=== PATIENT | female | born 1995 | race Caucasian/White ===

== ENCOUNTER 2018-12-06 19:04 | Emergency (ER) | payer OTHER ==
--- NOTE | 2018-12-06 20:07 | ED Physician Documentation ---
History of Present Illness - Stated complaint Stated Complaint: FEMALE - Chief complaint Chief Complaint: Abd Pain - History obtained from History obtained from: Patient - History of Present Illness Timing: Today - Additonal information Additional information: Patient is a 23-year-old female presenting with bilateral groin pain that began just prior to arrival. Patient reports significant menstrual cramps with light menstrual bleeding. Patient denies other vaginal pain or discharge. Patient's last menstrual period was approximately 70 days prior to onset of this period and states that she has had multiple negative tests. No fever, nausea, vomiting, urinary changes, or stool changes except for at this time she feels as though she cannot urinate or have a bowel movement. Patient took ibuprofen prior to arrival with significant improvement of discomfort. No other improving or worsening factors noted. Review of Systems Constitutional: denies: Fever GI: reports: Abdominal Pain. denies: Nausea, Vomiting, Constipation, Diarrhea : reports: Vaginal bleeding, Irregular menses. denies: Dysuria PD PAST MEDICAL HISTORY - Past Medical History Past Medical History: Yes - Past Surgical History Past Surgical History: Yes General: Appendectomy - Allergies Allergies/Adverse Reactions: Allergies Allergy/AdvReac Type Severity Reaction Status Date / Time No Known Drug Allergies Allergy Verified 12/06/18 19:14 - Social History Does the pt smoke?: No Smoking Status: Never smoker Does the pt drink ETOH?: Yes ETOH Use: Wine, Liquor Does the pt have substance abuse?: No Substance Use and Type: Marijuana - Immunizations Immunizations are current?: Yes - POLST Patient has POLST: No PD ED PE NORMAL - Vitals Vital signs reviewed: Yes - General General: Alert and oriented X 3, No acute distress, Well developed/nourished - HEENT HEENT: Atraumatic, Moist mucous membranes - Neck Neck: Supple, no meningeal sign - Cardiac Cardiac: RRR, No murmur - Respiratory Respiratory: No respiratory distress, Clear bilaterally - Abdomen Abdomen: Soft, Non tender, Non distended - Derm Derm: Normal color, Warm and dry, No rash - Extremities Extremities: No deformity, No tenderness to palpate, No edema - Neuro Neuro: Alert and oriented X 3, No motor deficit, No sensory deficit - Psych Psych: Normal mood, Normal affect Results - Vitals Vitals: Vital Signs - 24 hr 12/06/18 12/06/18 19:09 22:14 Temperature 36.4 C L 36.1 C L Heart Rate 91 72 Respiratory 18 18 Rate Blood Pressure 120/79 122/79 O2 Saturation 98 100 Oxygen O2 Source Room air - Labs Labs: Laboratory Tests 12/06/18 12/06/18 12/06/18 20:45 20:45 20:45 WBC 12.0 H RBC 4.14 L Hgb 12.2 Hct 36.7 L MCV 88.6 MCH 29.5 MCHC 33.2 RDW 13.2 Plt Count 323 MPV 9.6 Neut # (Auto) 9.0 H Lymph # (Auto) 2.3 [place] # (Auto) 0.5 Eos # (Auto) 0.1 Baso # (Auto) 0.1 Absolute Nucleated RBC 0.00 Nucleated RBC % 0.0 Sodium 139 Potassium 4.1 Chloride 105 Carbon Dioxide 22 Anion Gap 12.0 BUN 12 Creatinine 0.7 Estimated GFR (MDRD) 103 Glucose 115 H Calcium 10.1 Total Bilirubin 0.4 AST 19 ALT 16 Alkaline Phosphatase 73 Total Protein 8.3 H Albumin 4.6 Globulin 3.7 Albumin/Globulin Ratio 1.2 Lipase 34 Serum HCG, Qual NEGATIVE Urine Color Urine Clarity Urine pH Ur Specific [place] Urine Protein Urine Glucose (UA) Urine Ketones Urine Occult Blood Urine Nitrite Urine Bilirubin Urine Urobilinogen Ur Leukocyte Esterase Urine RBC Urine WBC Ur Squamous Epith Cells Urine Bacteria Ur Microscopic Review Urine Culture Comments Urine HCG, Qual 12/06/18 12/06/18 21:50 21:50 WBC RBC Hgb Hct MCV MCH MCHC RDW Plt Count MPV Neut # (Auto) Lymph # (Auto) [place] # (Auto) Eos # (Auto) Baso # (Auto) Absolute Nucleated RBC Nucleated RBC % Sodium Potassium Chloride Carbon Dioxide Anion Gap BUN Creatinine Estimated GFR (MDRD) Glucose Calcium Total Bilirubin AST ALT Alkaline Phosphatase Total Protein Albumin Globulin Albumin/Globulin Ratio Lipase Serum HCG, Qual Urine Color LT. YELLOW Urine Clarity HAZY Urine pH 6.5 Ur Specific [place] 1.015 1.015 Urine Protein NEGATIVE Urine Glucose (UA) NEGATIVE Urine Ketones NEGATIVE Urine Occult Blood SMALL H Urine Nitrite NEGATIVE Urine Bilirubin NEGATIVE Urine Urobilinogen 0.2 (NORMAL) Ur Leukocyte Esterase NEGATIVE Urine RBC 0-5 Urine WBC 0-3 Ur Squamous Epith Cells FEW Squamous Urine Bacteria Rare Ur Microscopic Review INDICATED Urine Culture Comments NOT INDICATED Urine HCG, Qual NEGATIVE PD MEDICAL DECISION MAKING - ED course Complexity details: reviewed results, re-evaluated patient, considered differential, d/w patient, d/w family ED course: Patient presenting with lower abdominal back pain consistent with menstrual cramping, however, she reports this has significant and much more painful than her usual cramps. 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 Patient does not believe she is as she has had multiple negative tests at home and at her physician's office. Patient denies other associated symptoms that would raise high suspicion for other intra-abdominal pathology including pancreatitis, gallbladder disease, diverticulitis, AAA, bowel obstruction, renal disease or UTI. Do have concern for possible ovarian cyst, but have lesser suspicion for PID, ovarian torsion, STDs, abscess, but considered. Patient relatively comfortable at this time as she took ibuprofen prior to arrival and did not require medications, but started on IV fluids. Screening lab work revealed mild leukocytosis but otherwise relatively unremarkable. Urinalysis also relatively unremarkable except for presence of blood which is likely from vaginal bleeding. Patient able to urinate on her own without complication in the ED. CT abdomen/pelvis obtainedAnd results pending. Patient signed out to oncoming ED physician and disposition will be dependent on imaging results. Disposition is unknown at this time and for disposition and further details please refer to oncoming ED physicians documentation. Departure - Departure Clinical Impression: Abdominal pain Qualifiers: Abdominal location: lower abdomen, unspecified Qualified Code(s): R10.30 - Lower abdominal pain, unspecified
[2018-12-06] MEDS ORDERED: SODIUM CHLORIDE 0.9% 1,000 ML IV ONE (20:19)
[2018-12-06 20:58] LABS: BASOPHILS # (AUTO) 0.1 10^3/uL (0.0-0.1); BASOPHILS % (AUTO) 0.5 %; EOSINOPHILS # (AUTO) 0.1 10^3/uL (0.0-0.7); EOSINOPHILS % (AUTO) 0.7 %; HGB - HEMOGLOBIN 12.2 g/dL (12.0-16.0); LYMPHOCYTES # (AUTO) 2.3 10^3/uL (1.5-3.5); MEAN CORPUSCULAR HEMOGLOBIN 29.5 pg (27.0-31.0); MEAN CORPUSCULAR HGB CONC 33.2 g/dL (32.0-36.0); MEAN CORPUSCULAR VOLUME 88.6 fL (81.0-99.0); MEAN PLATELET VOLUME 9.6 fL (7.9-10.8); MONOCYTES # (AUTO) 0.5 10^3/uL (0.0-1.0); MONOCYTES % (AUTO) 4.5 %; NEUTROPHILS % (AUTO) 74.9 %; PLT - PLATELET COUNT 323 10^3/uL (130-450); RED BLOOD COUNT 4.14 10^6/uL (4.20-5.40); RED CELL DISTRIBUTION WIDTH 13.2 % (12.0-15.0)
[2018-12-06 21:12] LABS: ALBUMIN 4.6 g/dL (3.2-5.5); ALBUMIN/GLOBULIN RATIO 1.2 (1.0-2.2); BILIRUBIN,TOTAL 0.4 mg/dL (0.2-1.0); CALCIUM 10.1 mg/dL (8.5-10.3); CREATININE 0.7 mg/dL (0.4-1.0); TOTAL PROTEIN 8.3 g/dL (6.7-8.2)
[2018-12-06 21:28] LABS: HCG,QUALITATIVE BLOOD NEGATIVE
[2018-12-06 21:57] LABS: BILIRUBIN,URINE NEGATIVE (NEGATIVE); GLUCOSE, URINE (UA) NEGATIVE (NEGATIVE); KETONES,URINE (UA) NEGATIVE (NEGATIVE); LEUKOCYTE ESTERASE, URINE NEGATIVE (NEGATIVE); NITRITE,URINE NEGATIVE (NEGATIVE); OCCULT BLOOD,URINE SMALL (NEGATIVE); PH,URINE 6.5 PH (5.0-7.5); PROTEIN,URINE NEGATIVE (NEGATIVE); UROBILINOGEN,URINE 0.2 (NORMAL) E.U./dL (NORMAL)
[2018-12-06 22:00] LABS: CLARITY,URINE HAZY (CLEAR)
[2018-12-06 22:01] LABS: HCG UR QUAL NEGATIVE
[2018-12-06] MEDS ORDERED: IOVERSOL 320 100 ML VIAL IVP ONE ×2 (22:23→22:44)
[2018-12-06 22:27] LABS: BACTERIA,URINE Rare /HPF (None Seen); RBC,URINE 0-5 /HPF (0-5); SQUAMOUS EPITHELIAL CELL,UR FEW Squamous (<= Few)
--- NOTE | 2018-12-06 23:06 | CT Report ---
Reason: diffuse lower abdominal pain with menstrual bleedi Procedure Date: 12/06/2018 Accession Number: [id number] / [id number] Procedure: CT - Abdomen/Pelvis W CPT Code: FULL RESULT: EXAM: CT ABDOMEN AND PELVIS EXAM DATE: 12/06/2018 10:43 PM. CLINICAL HISTORY: Diffuse lower abdominal pain with menstrual bleeding. COMPARISONS: None. TECHNIQUE: Routine helical CT imaging was performed through the abdomen and pelvis. IV contrast: 100 cc of Optiray 320. Enteric contrast: No. Reconstructions: Coronal and sagittal. In accordance with CT protocol optimization, one or more of the following dose reduction techniques were utilized for this exam: automated exposure control, adjustment of mA and/or KV based on patient size, or use of iterative reconstructive technique. FINDINGS: Lung Bases: Unremarkable. Liver: Normal. No masses. Gallbladder/Bile Ducts: Large gallstone. No dilated ducts. Spleen: Normal. Pancreas: Normal. Adrenal Glands: Normal. Kidneys: Normal. No masses or hydronephrosis. Peritoneal Cavity/Bowel: Normal. No free fluid, free air or adenopathy. No masses or acute inflammatory process. Appendectomy clips noted. Pelvic Organs: The reproductive organs and bladder are unremarkable. Vasculature: No aneurysms or other significant abnormality. Bones: No significant abnormality. Other: None. IMPRESSION: Large gallstone noted, otherwise unremarkable abdomen and pelvis CT. RADIA
--- NOTE | 2018-12-06 23:51 | ED Physician Documentation ---
History of Present Illness - Stated complaint Stated Complaint: FEMALE - Chief complaint Chief Complaint: Abd Pain - Additonal information Additional information: History and physical as dictated and charted by Dr. Hernandez. PAST MEDICAL HISTORY - Past Medical History Past Medical History: Yes - Past Surgical History Past Surgical History: Yes General: Appendectomy - Present Medications Home Medications: Ambulatory Orders Medication Instructions Recorded Confirmed Ibuprofen [Motrin] 800 mg PO Q8H PRN #30 tablet 12/06/18 - Allergies Allergies/Adverse Reactions: Allergies Allergy/AdvReac Type Severity Reaction Status Date / Time No Known Drug Allergies Allergy Verified 12/06/18 19:14 - Social History Does the pt smoke?: No Smoking Status: Never smoker Does the pt drink ETOH?: Yes ETOH Use: Wine, Liquor Does the pt have substance abuse?: No Substance Use and Type: Marijuana - Immunizations Immunizations are current?: Yes - POLST Patient has POLST: No Results - Vitals Vitals: Vital Signs - 24 hr 12/06/18 12/06/18 19:09 22:14 Temperature 36.4 C L 36.1 C L Heart Rate 91 72 Respiratory 18 18 Rate Blood Pressure 120/79 122/79 O2 Saturation 98 100 Oxygen O2 Source Room air - Labs Labs: Laboratory Tests 12/06/18 12/06/18 12/06/18 20:45 20:45 20:45 WBC 12.0 H RBC 4.14 L Hgb 12.2 Hct 36.7 L MCV 88.6 MCH 29.5 MCHC 33.2 RDW 13.2 Plt Count 323 MPV 9.6 Neut # (Auto) 9.0 H Lymph # (Auto) 2.3 [place] # (Auto) 0.5 Eos # (Auto) 0.1 Baso # (Auto) 0.1 Absolute Nucleated RBC 0.00 Nucleated RBC % 0.0 Sodium 139 Potassium 4.1 Chloride 105 Carbon Dioxide 22 Anion Gap 12.0 BUN 12 Creatinine 0.7 Estimated GFR (MDRD) 103 Glucose 115 H Calcium 10.1 Total Bilirubin 0.4 AST 19 ALT 16 Alkaline Phosphatase 73 Total Protein 8.3 H Albumin 4.6 Globulin 3.7 Albumin/Globulin Ratio 1.2 Lipase 34 Serum HCG, Qual NEGATIVE Urine Color Urine Clarity Urine pH Ur Specific [place] Urine Protein Urine Glucose (UA) Urine Ketones Urine Occult Blood Urine Nitrite Urine Bilirubin Urine Urobilinogen Ur Leukocyte Esterase Urine RBC Urine WBC Ur Squamous Epith Cells Urine Bacteria Ur Microscopic Review Urine Culture Comments Urine HCG, Qual 12/06/18 12/06/18 21:50 21:50 WBC RBC Hgb Hct MCV MCH MCHC RDW Plt Count MPV Neut # (Auto) Lymph # (Auto) [place] # (Auto) Eos # (Auto) Baso # (Auto) Absolute Nucleated RBC Nucleated RBC % Sodium Potassium Chloride Carbon Dioxide Anion Gap BUN Creatinine Estimated GFR (MDRD) Glucose Calcium Total Bilirubin AST ALT Alkaline Phosphatase Total Protein Albumin Globulin Albumin/Globulin Ratio Lipase Serum HCG, Qual Urine Color LT. YELLOW Urine Clarity HAZY Urine pH 6.5 Ur Specific [place] 1.015 1.015 Urine Protein NEGATIVE Urine Glucose (UA) NEGATIVE Urine Ketones NEGATIVE Urine Occult Blood SMALL H Urine Nitrite NEGATIVE Urine Bilirubin NEGATIVE Urine Urobilinogen 0.2 (NORMAL) Ur Leukocyte Esterase NEGATIVE Urine RBC 0-5 Urine WBC 0-3 Ur Squamous Epith Cells FEW Squamous Urine Bacteria Rare Ur Microscopic Review INDICATED Urine Culture Comments NOT INDICATED Urine HCG, Qual NEGATIVE PD MEDICAL DECISION MAKING - ED course Complexity details: reviewed results, re-evaluated patient, d/w patient ED course: Patient reports that her pain is gone. Her CT showed a large gallstone but no inflammatory changes in the pelvis or definite ovarian pathology. She is encouraged to use ibuprofen for her pain [place] and potentially of the pelvis if her symptoms persist. She states understanding. Departure - Departure Disposition: 01 Home, Self Care Clinical Impression: Abdominal pain Qualifiers: Abdominal location: lower abdomen, unspecified Qualified Code(s): R10.30 - Lower abdominal pain, unspecified Cholelithiasis Qualifiers: Cholelithiasis location: gallbladder Cholecystitis presence: without cholecystitis Biliary obstruction: without biliary obstruction Qualified Code(s): K80.20 - Calculus of gallbladder without cholecystitis without obstruction Condition: Good Instructions: ED Pelvic Pain [facility] Follow-Up: SHAQUILLE Perez [Provider Group] Prescriptions: Ibuprofen [Motrin] 800 mg PO Q8H PRN #30 tablet PRN Reason: PAIN &/OR FEVER Comments: May take Motrin every 8 hours as needed for pain. [place] Return if you have increasing pain, develop a fever, or vomiting and cannot keep anything down or other problems arise.
[2018-12-06 23:55] VITALS: BP 111/76
== END 2018-12-07 00:02 | disposition home or self-care (01) ==
LOC: ED 19:04
DX: R10.30 Lower abdominal pain, unspecified (principal); K80.20 Calculus of gallbladder without cholecystitis without obstruction; N94.6 Dysmenorrhea, unspecified; N92.6 Irregular menstruation, unspecified
CPT/HCPCS: 36415; 74177; 80053; 81001; 81025; 83690; 84703; 85025; 96360; 96361; 99284; Q9967; 81003; 87086

== ENCOUNTER 2020-06-17 12:43 | Outpatient (CLI) | payer OTHER ==
[2020-06-17 13:18] LABS: BASOPHILS % (AUTO) 0.5 %; EOSINOPHILS # (AUTO) 0.1 10^3/uL (0.0-0.7); EOSINOPHILS % (AUTO) 0.9 %; HGB - HEMOGLOBIN 11.8 g/dL (12.0-16.0); LYMPHOCYTES # (AUTO) 2.5 10^3/uL (1.5-3.5); LYMPHOCYTES % (AUTO) 28.9 %; MEAN CORPUSCULAR HEMOGLOBIN 27.8 pg (27.0-31.0); MEAN CORPUSCULAR HGB CONC 32.1 g/dL (32.0-36.0); MEAN CORPUSCULAR VOLUME 86.6 fL (81.0-99.0); MEAN PLATELET VOLUME 9.1 fL (7.9-10.8); MONOCYTES # (AUTO) 0.4 10^3/uL (0.0-1.0); NEUTROPHILS # (AUTO) 5.6 10^3/uL (1.5-6.6); NEUTROPHILS % (AUTO) 64.6 %; PLT - PLATELET COUNT 334 10^3/uL (130-450); RED BLOOD COUNT 4.25 10^6/uL (4.20-5.40); RED CELL DISTRIBUTION WIDTH 16.3 % (12.0-15.0); WHITE BLOOD COUNT 8.7 x10^3/uL (4.8-10.8)
[2020-06-17 13:28] LABS: CALCIUM 9.6 mg/dL (8.5-10.3); CREATININE 0.8 mg/dL (0.4-1.0)
== END 2020-06-17 12:44 | disposition home or self-care (01) ==
LOC: LAB 12:43
PROVIDERS: ATTEND Obstetrics & Gynecology
DX: Z01.812 Encounter for preprocedural laboratory examination (principal); N93.9 Abnormal uterine and vaginal bleeding, unspecified; N94.6 Dysmenorrhea, unspecified
CPT/HCPCS: 36415; 80048; 85025; 86850; 86900; 86901

== ENCOUNTER 2020-06-19 08:52 | Inpatient (IN) | payer OTHER ==
[2020-06-19] MEDS ORDERED: LACTATED RINGERS 1,000 ML IV ONE ×3 (09:09→15:30)
[2020-06-19] MEDS ORDERED: GABAPENTIN 400 MG CAPSULE ONE (09:15)
[2020-06-19] MEDS ORDERED: CELECOXIB 100 MG CAPSULE PO ONE (09:15)
[2020-06-19] MEDS ORDERED: ACETAMINOPHEN 1,000 MG/100 ML 100 ML IV ONE (09:15)
[2020-06-19 09:26] LABS: HCG UR QUAL NEGATIVE
--- NOTE | 2020-06-19 09:49 | ANESTHESIA ---
Pre-Anesthesia VS, & Labs Height: 5 ft Weight (kg): 72.54 kg Body Mass Index: 31.2 BMI Classification: Obese - NPO >8 hours - Is Patient ?: Yes - Lab Results Lab results reviewed: Yes <Lata Dhillon - Last Filed: 06/19/20 09:46> - Diagnosis abnormal uterine bleeding dysmenorrhea (Lata Dhillon) - Procedure Total Laparoscopic Hysterectomy (Lata Dhillon) Vital Signs: Temp Pulse Resp BP Pulse Ox 36.4 C L 81 18 115/82 H 99 06/19/20 09:19 06/19/20 09:19 06/19/20 09:19 06/19/20 09:19 06/19/20 09:19 - Lab Results Current Lab Results: Laboratory Tests 06/19/20 09:42: POC Whole Bld Glucose 88 Home Medications and Allergies <Lata Dhillon Chuck - Last Filed: 06/19/20 09:46> <Yayo Ramachandran - Last Filed: 06/19/20 09:50> Home Medications: Ambulatory Orders Ferrous Sulfate 325 mg PO DAILY 06/15/20 LORazepam [Ativan] 0.5 mg PO Q6H 06/15/20 Sertraline [Zoloft] 50 mg PO DAILY 06/15/20 Ascorbic Acid [Vitamin C] 250 mg PO DAILY 06/19/20 Ferrous Sulfate 325 mg PO DAILY 06/15/20 LORazepam [Ativan] 0.5 mg PO Q6H 06/15/20 Sertraline [Zoloft] 50 mg PO DAILY 06/15/20 Ascorbic Acid [Vitamin C] 250 mg PO DAILY 06/19/20 Allergies/Adverse Reactions: Allergies Allergy/AdvReac Type Severity Reaction Status Date / Time NSAIDS (Non-Steroidal AdvReac Intermediate ulcers Verified 06/19/20 09:29 Anti-Inflamma Anes History & Medical History - Anesthetic History Anesthesia Complications: reports: No previous complications Family history of Anesthesia Complications: Denies Family history of Malignant Hyperthermia: Denies - Medical History Cardiovascular: reports: None Pulmonary: reports: None Gastrointestinal: reports: None Urinary: reports: None Musculoskeletal: reports: None Endocrine/Autoimmune: reports: None Blood Disorders: reports: Anemia Skin: reports: None Smoking Status: Never smoker Psychosocial: reports: Cannabis (vapes at times. Edibles weekly) - Surgical History General: Appendectomy, EGD <Lata Dhillon - Last Filed: 06/19/20 09:46> Exam General: Alert, Oriented x3, Cooperative, No acute distress Dental: WNL Mouth Openin Fingerbreadth Neck Mobility: Normal Mallampati classification: I Respiratory: Lungs clear, Normal breath sounds, No respiratory distress, No accessory muscle use Cardiovascular: Regular rate, Normal S1, Normal S2, No murmurs <Lata Dhillon - Last Filed: 06/19/20 09:46> Plan Anesthesia Type: General, Transverse Abdominis Plane (TAP) Block Regional Block: Per Surgeon's request for Post Op pain control Consent for Procedure(s) Verified and Reviewed: Yes Code Status: Attempt Resuscitation ASA classification: 2-Mild systemic disease Is this case an emergency?: No <Lata Dhillon - Last Filed: 06/19/20 09:46> Anesthesia Type: General, Transverse Abdominis Plane (TAP) Block <Yayo Ramachandran - Last Filed: 06/19/20 09:50>
[2020-06-19] MEDS ORDERED: ONDANSETRON 4 MG/2 ML VIAL IVP PRN (09:51)
[2020-06-19] MEDS ORDERED: NALOXONE 0.4 MG/ML VIAL IVP PRN (09:51)
[2020-06-19] MEDS ORDERED: ePHEDrine 50 MG/ML VIAL IVP PRN (09:51)
[2020-06-19] MEDS ORDERED: METOCLOPRAMIDE 10 MG/2 ML VIAL IVP PRN (09:51)
[2020-06-19] MEDS ORDERED: fentaNYL 100 MCG/2 ML VIAL IVP PRN (09:51)
[2020-06-19] MEDS ORDERED: ATROPINE ABBOJECT 1 MG/10 ML SYRINGE IVP PRN (09:51)
[2020-06-19] MEDS ORDERED: MORPHINE 2 MG/ML CARPUJECT IVP PRN (09:51)
[2020-06-19] MEDS ORDERED: LACTATED RINGERS 1,000 ML IV SCH (10:00)
[2020-06-19] MEDS ORDERED: ceFAZolin 2 GM/50 ML 2 GM/50 ML BAG IV ONE (11:13)
[2020-06-19] MEDS ORDERED: BUPIVACAINE 0.25% PF 10 ML VIAL ONE (11:19)
--- NOTE | 2020-06-19 11:19 | PHARMACY PROGRESS NOTE ---
- Best Possible Medication History Admit Date and Time: 06/19/20 0852 Processed by: Nursing Medication History completed: Yes Patient Interview: Completed Secondary Source(s): Physician records, Pharmacy records, Insurance records As the person ultimately responsible for medication therapy, providers are able to order a medication from an existing home medication list in [facility] via the "Reconcile Routine" prior to Confirmation of that medication by support director. Such practice is discouraged except when the physician, in their clinical judgment, deems that a medical need exists for a medication without regard to previous use.
[2020-06-19] MEDS ORDERED: BUPIVACAINE 0.25% PF 30 ML VIAL SUBQ ONE ×2 (12:26)
[2020-06-19] MEDS ORDERED: MORPHINE 10 MG/ML VIAL IVP PRN (14:57)
--- NOTE | 2020-06-19 15:15 | OPERATIVE REPORT ---
Operative Report - General Admit Date: 06/19/20 Procedure Date: 06/19/20 Planned Procedure: Total Laparoscopic Hysterectomy, Bilateral Salpingectomy, Cystoscopy Pre-Op Diagnosis: Heavy Menstrual Bleeding, Dysmenorrhea Procedure Performed: Total Laparoscopic Hysterectomy, Bilateral Salpingectomy, Cystoscopy, Thermoablation of Endometriosis Lesions Post Op Diagnosis: Heavy Menstrual Bleeding, Dysmenorrhea, Endometriosis - Procedure Note Primary Surgeon: Monica Secondary Surgeon: Mihir Anesthesia Provider: Diamond Anesthesia Technique: General ET tube, Other (TAP Block) Pathology: Uterus, Cervix, Bilateral Fallopian tubes IV Fluids (mL): 2,000 (Ringers Lactate) Estimated Blood Loss (mL): 100 Urine Output (mL): 250 Indications: 25 year old female G0 with long-standing history of dysmenorrhea and heavy menstrual bleeding, not desiring future fertility and declined hormonal contraception to manage dysmenorrhea and heavy menses, desired definitive management with hysterectomy. She was counseled and consented for the procedure. Findings: Exam under anesthesia with normal size/shape/contour mobile uterus. No adnexal masses. Intraoperatively: Uterus sounded to 9cm. Uterus, bilateral fallopian tubes and ovaries appear normal. Anterior cul-de-sac normal. Posterior cul-de-sac and bilateral uterosacral ligaments with numerous black lesions with surrounding thick fibrotic scarring consistent with endometriosis. Normal liver edge and gallbladder. Free memo noted in right abdominal peritoneum from prior surgery. Cystoscopy: Normal bladder without sutures or lacerations, brisk efflux of urine visualized from bilateral ureteral orifices. Complications: None - Other Other Information/Narrative: OPERATIVE PROCEDURE: The patient was taken to the operating room where general endotracheal anesthesia was performed without any complications. An examination under anesthesia was performed notable above findings. The patient was prepared and draped in the usual sterile fashion in the dorsal low lithotomy position. A Blanco catheter was placed in the bladder and an Advincula uterine manipulator with Temitope cervical cup was placed in the uterus to provide uterine manipulation. A vaginal balloon was inflated with saline to aid in pneumoperitoneum. An incision was made in the inferior pole of the umbilicus, and the Veress needle was used to insufflate the abdomen with CO2 gas. Intraabdominal placement confirmed with initial entry pressure of 5mm Hg. A pneumoperitoneum was then created with CO2 gas to maintain maximum pressure of 15mm Hg. The Veress needle was removed and the laparoscopic trocar and scope were placed, using an Sparks bladeless trocar, under direct visualization. Ancillary ports were placed all under direct visualization. The first was a 5 mm port near the left ASIS, the second a 11 mm port near the right ASIS. Survey of the abdomen and pelvis revealed the findings as noted above. The ureters were easily identified transperitoneally bilaterally. The Ligasure device was used to seal and transect the right utero-ovarian and round ligaments followed by opening of the anterior leaf of the broad ligament down to the level of the cervix. The uterine artery was skeletonized, sealed and ligated using the Ligasure device. The same procedure was performed on the left side. A bladder flap was created and the bladder dissected down from the cervix until the endopelvic fascia was identified. The Temitope cup was identified and an incision was made in the cervicovaginal junction on top of the vaginal cuff. This incision was continued circumferentially following the Temitope cup until the cervix was freed from the surrounding vagina. The uterus was then delivered through the vagina. The right fallopian tube was ligated at the mesosalpinx and removed from the abdomen. The left fallopian tube was removed in a similar fashion. The vaginal cuff was closed using 0 V-loc suture endostitch in running fashion. The pelvis was irrigated and the entire pelvis and bilateral pedicles were noted to be hemostatic. The black endometriosis lesions in the posterior cul-de-sac and bilateral uterosacral ligaments were thermoablated with the Ligasure device. The blanco was removed and cystoscopy was performed for inspection of the bladder. A complete survey of the bladder revealed no injury or defects to the bladder or the urethra, and brisk efflux of urine was noted from bilateral uret eral orifices. The cystoscope was removed and the blanco catheter replaced. All instruments were removed from the abdomen. The abdomen was decompressed and all the trocars were removed. The RLQ fascia was closed with 0-vicryl in a using the Nick-Savi device. All skin incisions were closed with 4-0 monocryl in subcuticular fashion and covered with Dermabond. All instruments were removed from the vagina. The patient tolerated the procedure well. All sponge, sharp, and instrument counts were correct x2. The patient was awakened from anesthesia and taken to the recovery room in stable condition with a Blanco catheter in place.
[2020-06-19] MEDS: HYDROmorphone 0.5 MG/0.5 ML SYRINGE IVP PRN ×2 (15:23→15:45)
--- NOTE | 2020-06-19 16:11 | ANESTHESIA POST OP EVALUATION ---
Anesthesia Post Eval - Post Anesthesia Eval Vitals: Last Vital Signs Temp 36.1 C L 06/19/20 15:57 Pulse 86 06/19/20 15:57 Resp 20 06/19/20 15:57 BP 99/62 06/19/20 15:43 Pulse Ox 100 06/19/20 15:57 CV Function Including HR & BP: positive: Stable Pain Control: positive: Satisfactory Nausea & Vomiting: positive: Negative Mental Status: positive: Baseline Respiratory Status: Airway Patent Hydration Status: Satisfactory Anesthesia Complications: positive: None
[2020-06-19] MEDS: LACTATED RINGERS 1,000 ML IV SCH ×2 (16:20→23:33)
[2020-06-19] MEDS: ACETAMINOPHEN 500 MG TABLET PO SCH ×2 (16:21→21:56)
[2020-06-19] MEDS: oxyCODONE 5 MG TABLET PO PRN ×2 (17:45→21:56)
[2020-06-19] MEDS: SERTRALINE 50 MG TABLET PO SCH (18:01)
[2020-06-19] MEDS: DOCUSATE SODIUM 100 MG CAPSULE PO SCH (21:57)
[2020-06-19] MEDS: SIMETHICONE CHEW 80 MG TABLET PO SCH (21:57)
[2020-06-20] MEDS ORDERED: DOXYLAMINE 25 MG TABLET PO ONE ×3 (00:05→21:00)
[2020-06-20] MEDS: ACETAMINOPHEN 500 MG TABLET PO SCH ×2 (03:15→08:45)
[2020-06-20] MEDS: oxyCODONE 5 MG TABLET PO PRN ×2 (05:08→10:01)
[2020-06-20] MEDS: SIMETHICONE CHEW 80 MG TABLET PO SCH (05:08)
[2020-06-20 05:15] LABS: BASOPHILS % (AUTO) 0.2 %; EOSINOPHILS % (AUTO) 0.1 %; HGB - HEMOGLOBIN 9.6 g/dL (12.0-16.0); LYMPHOCYTES # (AUTO) 1.7 10^3/uL (1.5-3.5); LYMPHOCYTES % (AUTO) 13.2 %; MEAN CORPUSCULAR HEMOGLOBIN 27.5 pg (27.0-31.0); MEAN CORPUSCULAR HGB CONC 31.5 g/dL (32.0-36.0); MEAN CORPUSCULAR VOLUME 87.4 fL (81.0-99.0); MEAN PLATELET VOLUME 9.6 fL (7.9-10.8); MONOCYTES # (AUTO) 0.9 10^3/uL (0.0-1.0); NEUTROPHILS % (AUTO) 79.1 %; PLT - PLATELET COUNT 295 10^3/uL (130-450); RED BLOOD COUNT 3.49 10^6/uL (4.20-5.40); RED CELL DISTRIBUTION WIDTH 16.5 % (12.0-15.0); WHITE BLOOD COUNT 12.6 x10^3/uL (4.8-10.8)
[2020-06-20] MEDS: SERTRALINE 50 MG TABLET PO SCH (08:45)
[2020-06-20] MEDS: DOCUSATE SODIUM 100 MG CAPSULE PO SCH (08:45)
--- NOTE | 2020-06-20 09:18 | PROVIDER PROGRESS NOTE ---
Subjective - Prog Note Date Prog Note Date: 06/20/20 Prog Note Time: 09:16 - Subjective Pt reports feeling: Improved Subjective: 25yof now POD#1 s/p uncomplicated TLH/bilateral salpingectomy/cytsoscopy/thermoablation of endometriosis, reports feeling well overnight. Had difficulty falling asleep, was given doxylamine with good effect. She has not yet ambulated. Carrera was discontinued at 0630 and awaiting void. She denies fevers/chills, nausea/vomiting, chest pain/shortness of breath, lightheadedness/dizziness. She reports passage of flatus. Tolerated dinner well last night. No complaints this a.m. Current Medications - Current Medications Current Medications: see medication list Objective - Vital Signs/Intake & Output Reviewed Vital Signs: Yes Vital Signs: Vital Signs x48h Temp Pulse Resp BP BP Pulse Ox 06/20/20 07:55 98.2 F 77 18 96/52 L 98 06/20/20 03:29 103/60 06/20/20 03:00 98.1 F 97 16 93/48 L 98 Intake & Output: Intake & Output 06/17/20 06/18/20 06/19/20 06/20/20 23:59 23:59 23:59 23:59 Intake Total 1740 1070 Output Total 2050 2200 Balance -310 -1130 - Objective General Appearance: positive: No acute distress, Alert Eyes Bilateral: positive: Normal inspection ENT: positive: ENT inspection nml Neck: positive: Nml inspection Respiratory: positive: No respiratory distress Cardiovascular: positive: Regular rate & rhythm Abdomen: positive: Other (Soft, no distention, appropriately tender to palpation) Skin: positive: Other (Abdominal incision sites covered with dermabond, clean and dry) Extremities: positive: Non-tender, No pedal edema Neurologic/Psychiatric: positive: Oriented x3 Comments/Other: - peripad with scant blood - Lab Results Fish Bones: 06/20/20 04:54 Other Labs: Lab Results x24hrs 06/20/20 06/19/20 06/19/20 Range/Units 04:54 09:42 09:08 WBC 12.6 H (4.8-10.8) x10^3/uL RBC 3.49 L (4.20-5.40) 10^6/uL Hgb 9.6 L (12.0-16.0) g/dL Hct 30.5 L (37.0-47.0) % MCV 87.4 (81.0-99.0) fL MCH 27.5 (27.0-31.0) pg MCHC 31.5 L (32.0-36.0) g/dL RDW 16.5 H (12.0-15.0) % Plt Count 295 (130-450) 10^3/uL MPV 9.6 (7.9-10.8) fL Neut # (Auto) 10.0 H (1.5-6.6) 10^3/uL Lymph # (Auto) 1.7 (1.5-3.5) 10^3/uL [place] # (Auto) 0.9 (0.0-1.0) 10^3/uL Eos # (Auto) 0.0 (0.0-0.7) 10^3/uL Baso # (Auto) 0.0 (0.0-0.1) 10^3/uL Absolute Nucleated RBC 0.00 x10^3/uL Nucleated RBC % 0.0 /100WBC POC Whole Bld Glucose 88 (70 - 100) mg/dL Urine HCG, Qual NEGATIVE Assessment/Plan - Problem List (1) Status post hysterectomy Impression: 25yof now POD#1 s/p uncomplicated TLH/bilateral salping ectomy/cystoscopy/thermoablation of endometriosis, doing well. Afebrile, hemodynamically stable. - continue post-surgical care - encourage ambulation - await void - anticipate discharge home today if no complications arise. (2) Heavy menstrual bleeding Impression: s/p hysterectomy, see above Qualifiers: Menorrhagia type: with irregular cycle Qualified Code(s): N92.1 - Excessive and frequent menstruation with irregular cycle (3) Endometriosis determined by laparoscopy Impression: s/p hysterectomy, see above
[2020-06-20] MEDS: LACTATED RINGERS 1,000 ML IV SCH (09:28)
--- NOTE | 2020-06-20 10:08 | DISCHARGE SUMMARY ---
"Discharge Summary Admit Date: 06/19/20 Discharge Date: 06/20/20 Discharging Provider: Monica Code Status: Attempt Resuscitation Condition at Discharge: Good Discharge Disposition: 01 Home, Self Care - DIAGNOSES Admission Diagnoses: Heavy Menstrual Bleeding, Dysmenorrhea Discharge Diagnoses with Status of Each Condition: Heavy menstrual bleeding, dysmenorrhea, and endometriosis, status post hysterectomy - HPI History of Present Illness: 25 year old female G0 with long-standing history of dysmenorrhea and heavy and irregular menses, declining hormonal contraceptive management due to mood side effects, declined future childbearing and desiring definitive management of dysmenorrhea and heavy menstrual bleeding with hysterectomy. - CONSULTS | PROCEDURES Procedures: Total Laparoscopic hysterectomy, bilateral salpingectomy, cystoscopy, thermoablation of endometriosis. - HOSPITAL COURSE Hospital Course: The patient underwent uncomplicated total laparoscopic hysterectomy, bilateral salpingectomy, cystoscopy, and thermoablation of endometriosis lesions, and was admitted for post-surgical care. She is ambulating, tolerating a regular diet, voiding spontaneously, and had good pain control on oral pain medications. She is meeting discharge criteria and was discharged home in stable condition on POD#1. - ALLERGIES Allergies/Adverse Reactions: Allergies Allergy/AdvReac Type Severity Reaction Status Date / Time NSAIDS (Non-Steroidal AdvReac Intermediate ulcers Verified 06/19/20 09:29 Anti-Inflamma - MEDICATIONS Home Medications: Ambulatory Orders Medication Instructions Recorded Confirmed Ibuprofen [Motrin] 800 mg PO Q8H PRN #30 tablet 12/06/18 06/19/20 Ferrous Sulfate 325 mg PO DAILY 06/15/20 06/19/20 LORazepam [Ativan] 0.5 mg PO Q6H 06/15/20 06/19/20 Sertraline [Zoloft] 50 mg PO DAILY 06/15/20 06/19/20 Ascorbic Acid [Vitamin C] 250 mg PO DAILY 06/19/20 06/19/20 Home Medications Other | Comments: Acetaminophen 325mg, take 2 tablets by mouth every 4 hours as needed for pain. DO NOT EXCEED 4000 MG IN A 24 HOUR PERIOD. Ibuprofen 600mg, take 1 tablet by mouth every 6 hours as needed for pain. TAKE WITH FOOD OR MILK. Oxycodone 5mg, take 1 tablet by mouth every 6 hours as needed for pain not controlled by acetaminophen or ibuprofen. - PHYSICAL EXAM AT DISCHARGE General Appearance: positive: No acute distress, Alert Eyes Bilateral: positive: Normal inspection ENT: positive: ENT inspection nml Neck: positive: Nml inspection Respiratory: positive: No respiratory distress Cardiovascular: positive: Regular rate & rhythm Peripheral Pulses: positive: 2+ Abdomen: positive: Other (Soft, nondistended, appropriately tender to palpation) Back: positive: Nml inspection Skin: positive: Other (Abdominal skin incisions clean, dry, and intact, covered with dermabond) Extremities: positive: Non-tender, Nml appearance Neurologic/Psychiatric: positive: Oriented x3 Physical Exam Other/Comments: - no edema, scant bleeding on peripad. - LABS Result Diagrams: 06/20/20 04:54 - FOLLOW UP Follow Up: Follow-up in 2 weeks in [facility] at [facility], . - TIME SPENT Time Spent in Discharge (Minutes): 15"
[2020-06-20 13:56] VITALS: BP 103/63
== END 2020-06-20 12:28 | disposition home or self-care (01) | DRG 743 ==
LOC: MS3 08:52
PROVIDERS: ADMIT Obstetrics & Gynecology; ATTEND Obstetrics & Gynecology
PROC: 0UT74ZZ Resection of Bilateral Fallopian Tubes, Percutaneous Endoscopic Approach (ICD-10-PCS; 2020-06-19)
PROC: 0U5F4ZZ Destruction of Cul-de-sac, Percutaneous Endoscopic Approach (ICD-10-PCS; 2020-06-19)
PROC: 0UT94ZZ Resection of Uterus, Percutaneous Endoscopic Approach (ICD-10-PCS; principal; 2020-06-19 10:00)
DX: N92.1 Excessive and frequent menstruation with irregular cycle (principal); N80.3 Endometriosis of pelvic peritoneum; N94.6 Dysmenorrhea, unspecified; E66.9 Obesity, unspecified; Z68.31 Body mass index [BMI] 31.0-31.9, adult; D64.9 Anemia, unspecified; Z79.899 Other long term (current) drug therapy
CPT/HCPCS: 36415; 81025; 85025; A9270; J0131; J0690; J7120

== ENCOUNTER 2020-07-08 11:42 | Emergency (ER) | payer OTHER ==
--- NOTE | 2020-07-08 12:03 | ED Physician Documentation ---
PD HPI WOUND RECHECK - Stated complaint Stated Complaint: INCISION CONCERNS/FEMALE - Chief complaint Chief Complaint: Abd Pain - Histroy obtained from History obtained from: Patient - History of Present Illness Location: Abdomen Timing - onset: How many days ago (onset of some RLQ abd pain intermittently with movement 3 days ago.) Associated symptoms: Pain (intermittent). No: Fever, Redness, Swelling, Drainage Similar symptoms before: Has not had sx before, Other (denies change in activity; has been lightly active post-op the past couple of weeks.) Recently seen: Clinic (post op check this past week (4 days ago).), Surgery (hysterctomy 3 weeks ago and was doing well with normal post-op check this past week. Started with some RLQ pain with movement 3 days ago. Also some tenderness in center of RLQ incision. No consistent pain.) Review of Systems Constitutional: denies: Fever, Chills Nose: denies: Rhinorrhea / runny nose, Congestion Throat: denies: Sore throat Respiratory: denies: Cough PD PAST MEDICAL HISTORY - Past Medical History Cardiovascular: None Respiratory: None Endocrine/Autoimmune: None GI: None : None HEENT: None Psych: Depression, Anxiety Musculoskeletal: None Derm: None - Past Surgical History Past Surgical History: Yes General: Appendectomy, EGD - Present Medications Home Medications: Ambulatory Orders Medication Instructions Recorded Confirmed Ibuprofen [Motrin] 800 mg PO Q8H PRN #30 tablet 12/06/18 07/08/20 Ferrous Sulfate 325 mg PO DAILY 06/15/20 07/08/20 LORazepam [Ativan] 0.5 mg PO Q6H 06/15/20 07/08/20 Sertraline [Zoloft] 50 mg PO DAILY 06/15/20 07/08/20 Ascorbic Acid [Vitamin C] 250 mg PO DAILY 06/19/20 07/08/20 Mupirocin Calcium [Mupirocin] 1 applic TP TID #15 gm 07/08/20 - Allergies Allergies/Adverse Reactions: Allergies Allergy/AdvReac Type Severity Reaction Status Date / Time NSAIDS (Non-Steroidal AdvReac Intermediate ulcers Verified 07/08/20 11:47 Anti-Inflamma - Social History Does the pt smoke?: No Smoking Status: Never smoker Does the pt drink ETOH?: Yes Does the pt have substance abuse?: No - Immunizations Immunizations are current?: Yes - POLST Patient has POLST: No PD ED PE NORMAL - Vitals Vital signs reviewed: Yes - General General: Alert and oriented X 3, No acute distress, Well developed/nourished - Cardiac Cardiac: RRR, No murmur - Respiratory Respiratory: Clear bilaterally - Abdomen Abdomen: Normal bowel sounds, Soft, Non distended, No organomegaly, Other (healing laparoscopic wounds without signs of infection. the RLQ wound has a small thread like point just out of the skin in the middle with minimal 2 mm red spot surround it. No drainage. No fluid collection under the skin by palpation nor U/S. No deeper tenderness. ) - Derm Derm: Normal color, Warm and dry Results - Vitals Vitals: Vital Signs - 24 hr 07/08/20 07/08/20 07/08/20 11:45 12:03 12:51 Temperature 36.3 C L 36.9 C Heart Rate 103 H 95 80 Respiratory 20 16 14 Rate Blood Pressure 112/80 120/85 H 110/85 H O2 Saturation 98 100 99 Oxygen O2 Source Room air PD MEDICAL DECISION MAKING - ED course Complexity details: reviewed results (just bedside U/S by me without signs of fluid collections. ), considered differential (no signs of wound infection per se. Minimal 2 mm stitch irritation and end of thread out from skin. No deeper tenderness. Presume the pains she has had are some scar tissue pain with movement. ), d/w patient, other (I used small splinter forceps to pull at the thread and cut base with scalpel to below skin level. ) Departure - Departure Disposition: 01 Home, Self Care Clinical Impression: Visit for wound check, Postoperative right lower quadrant abdominal pain, Postoperative stitch abscess, Status post hysterectomy Condition: Stable Record reviewed to determine appropriate education?: Yes Follow-Up: [place] GARCIA ARNP [Primary Care Provider] - Prescriptions: Mupirocin Calcium [Mupirocin] 1 applic TP TID #15 gm Comments: It did feel like there was a little end of the stitch out from the wound and I believe are removed it enough. You could use some antibiotic ointment to the area 2 or 3 times daily and bandage or cover it as needed. I do not see any obvious signs of infection nor fluid collection under the wound with simple bedside ultrasound. I presume your pain there is from some scar tissue bothering or irritating the nerve area. Consider anti-inflammatories twice daily with food and add Tylenol if needed for pain. Follow-up with your provider postop care as planned. Return if worsening pain fever vomiting or other concerns. Discharge Date/Time: 07/08/20 12:51
[2020-07-08] MEDS ORDERED: MUPIROCIN 2% OINT 1 GM TOP STA (12:32)
[2020-07-08] MEDS ORDERED: ACETAMINOPHEN 325 MG TABLET PO STA (12:32)
[2020-07-08 12:52] VITALS: BP 110/85
== END 2020-07-08 12:51 | disposition home or self-care (01) ==
LOC: ED 11:42
DX: G89.18 Other acute postprocedural pain (principal); R10.31 Right lower quadrant pain; T81.41XA Infection following a procedure, superficial incisional surgical site, initial encounter; Z90.710 Acquired absence of both cervix and uterus
CPT/HCPCS: 99282; 99283; A9270

== ENCOUNTER 2020-09-02 16:07 | Emergency (ER) | payer OTHER ==
--- OUTSIDE RECORDS SUMMARY | 2020-09-02 16:11 | EXTERNAL MEDICAL SUMMARY RPT | Continuity of Care Document ---
:1995 Demographics Phone Unavailable Preferred Language Paraguayan Marital Status Unknown Mormon Affiliation Unknown Race Unknown Ethnic Group Unknown Author Organization [facility] Address [address] [place] [address] Phone Care Team Providers Name Role Phone Michelle Rawls Unavailable Unavailable Jenniffer Thakkar Unavailable Unavailable Medications date description facility [id number] [facility] Carbonate 300 MG Oral Tablet I [facility] [id number] [facility] Carbonate 300 MG Oral Tablet I [facility] Problems date description facility [id number] Bipolar disorder, unspecified [facility]
--- OUTSIDE RECORDS SUMMARY | 2020-09-02 16:36 | EXTERNAL MEDICAL SUMMARY RPT | Continuity of Care Document ---
:1995 Demographics Phone Unavailable Preferred Language Tajik Marital Status Unknown Faith Affiliation Unknown Race Unknown Ethnic Group Unknown Author Organization [facility] Address [address] [place] [address] Phone Care Team Providers Name Role Phone Jenniffer Thakkar Unavailable Unavailable Michelle Rawls Unavailable Unavailable Medications date description facility [id number] [place] Carbonate 300 MG Oral Tablet I [facility] [id number] [place] Carbonate 300 MG Oral Tablet I [facility] Problems date description facility [id number] Bipolar disorder, unspecified [facility]
[2020-09-02 17:09] LABS: BASOPHILS % (AUTO) 0.4 %; EOSINOPHILS # (AUTO) 0.2 10^3/uL (0.0-0.7); EOSINOPHILS % (AUTO) 1.7 %; HCT - HEMATOCRIT 41.4 % (37.0-47.0); HGB - HEMOGLOBIN 13.9 g/dL (12.0-16.0); LYMPHOCYTES # (AUTO) 2.4 10^3/uL (1.5-3.5); LYMPHOCYTES % (AUTO) 25.2 %; MEAN CORPUSCULAR HEMOGLOBIN 29.5 pg (27.0-31.0); MEAN CORPUSCULAR HGB CONC 33.6 g/dL (32.0-36.0); MEAN CORPUSCULAR VOLUME 87.9 fL (81.0-99.0); MEAN PLATELET VOLUME 9.3 fL (7.9-10.8); MONOCYTES # (AUTO) 0.5 10^3/uL (0.0-1.0); MONOCYTES % (AUTO) 5.5 %; NEUTROPHILS # (AUTO) 6.3 10^3/uL (1.5-6.6); PLT - PLATELET COUNT 289 10^3/uL (130-450); RED BLOOD COUNT 4.71 10^6/uL (4.20-5.40); RED CELL DISTRIBUTION WIDTH 13.6 % (12.0-15.0); WHITE BLOOD COUNT 9.5 x10^3/uL (4.8-10.8)
--- NOTE | 2020-09-02 17:10 | ED Physician Documentation ---
<YeseniaMane Purdy - Last Filed: 09/02/20 22:31> History of Present Illness - Stated complaint Stated Complaint: MHE - Chief complaint Chief Complaint: MHE PD PAST MEDICAL HISTORY - Present Medications Home Medications: Ambulatory Orders Medication Instructions Recorded Confirmed LORazepam [Ativan] 0.5 mg PO Q6H PRN 06/15/20 09/02/20 [place] Carbonate 600 mg PO HS 09/02/20 09/02/20 - Allergies Allergies/Adverse Reactions: Allergies Allergy/AdvReac Type Severity Reaction Status Date / Time NSAIDS (Non-Steroidal AdvReac Intermediate ulcers Verified 09/02/20 16:17 Anti-Inflamma <Merlene Robles - Last Filed: 09/02/20 22:34> History of Present Illness - Additonal information Additional information: 25-year-old female presents to the emergency department for evaluation of passive suicidal ideation. She reports that today she has had thoughts of self- harm. Not with the intent to but to feel pain. She reports that she is working closely with her psychiatrist Dr. Hector through [facility]. They are tentatively diagnosing her with a borderline as well as bipolar depressive disorder as well as possible autism. About 6 weeks ago the patient was slowly transitioned off of Zoloft in favor of starting lithium as a mood stabilizer. Her lithium dose was increased Friday. She states that now that she is off of Zoloft she is starting to have increasing anxiety which has contributed to these thoughts of self-harm. She does have a rescue medication with lorazepam and did take a tablet today which had some relief. Patient does not desire to be hospitalized but would like some help with medication management. She seems to have supportive family at home including her . Review of Systems Constitutional: reports: Reviewed and negative Ears: reports: Reviewed and negative Nose: reports: Reviewed and negative Throat: reports: Dental pain / toothache Cardiac: reports: Reviewed and negative Respiratory: reports: Reviewed and negative GI: reports: Reviewed and negative : reports: Reviewed and negative Skin: reports: Reviewed and negative Musculoskeletal: reports: Reviewed and negative Neurologic: reports: Reviewed and negative Psychiatric: reports: Depressed, Anxiety. 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: Endometriosis, Ovarian cysts : None HEENT: None Psych: Depression, Anxiety Musculoskeletal: None Derm: None - Past Surgical History Past Surgical History: Yes General: Appendectomy, EGD /MEDICAL ASSISTING INSTRUCTOR: Hysterectomy - Social History Does the pt smoke?: No Smoking Status: Never smoker Does the pt drink ETOH?: Yes Does the pt have substance abuse?: No - Immunizations Immunizations are current?: Yes - POLST Patient has POLST: No PD ED PE EXPANDED - General General: Alert, No acute distress, Well developed/nourished - Cardiac Cardiac: Regular Rate, Radial strong equal, Cap refill < 2 sec. No: Murmur Present - Respiratory Respiratory: Clear to ausultation felipe. No: Distress, Labored - Abdomen Abdomen: Normal Bowel sounds. No: Tender to palpation - Neuro Neuro: Alert and Oriented X 3, CNII-XII intact - GCS Eye Opening: Spontaneous Motor: Obeys Commands Verbal: Oriented Total: 15 - Psych Psych: Anxious, Other (Well-appearing female. She is eager to discuss her history and her symptoms. She denies wanting to but does have thoughts of self-harm in order to feel pain.). No: Intoxicated / AOB, Depressed, Suicidal, Pressured speech Results - Vitals Vitals: Vital Signs - 24 hr 09/02/20 16:12 Temperature 35.8 C L Heart Rate 87 Respiratory 16 Rate Blood Pressure 118/79 O2 Saturation 100 Oxygen O2 Source Room air - EKG (time done) 1644 Rate: Rate (enter#) (77) Rhythm: NSR [place]: Normal Intervals: Normal DC QRS: Normal Ischemia: Normal ST segments Compare to prior EKG: Old EKG unavailable Computer interpretation: Agree with computer - Labs Labs: Laboratory Tests 09/02/20 09/02/20 09/02/20 17:03 17:03 17:03 WBC 9.5 RBC 4.71 Hgb 13.9 Hct 41.4 MCV 87.9 MCH 29.5 MCHC 33.6 RDW 13.6 Plt Count 289 MPV 9.3 Neut # (Auto) 6.3 Lymph # (Auto) 2.4 [place] # (Auto) 0.5 Eos # (Auto) 0.2 Baso # (Auto) 0.0 Absolute Nucleated RBC 0.00 Nucleated RBC % 0.0 Sodium 138 Potassium 4.2 Chloride 103 Carbon Dioxide 25 Anion Gap 10.0 BUN 14 Creatinine 0.8 Estimated GFR (MDRD) 87 L Glucose 91 Calcium 9.8 Total Bilirubin 0.6 AST 16 ALT 15 Alkaline Phosphatase 70 Total Protein 8.0 Albumin 4.6 Globulin 3.4 Albumin/Globulin Ratio 1.4 Lipase 31 TSH 1.74 Urine Color Urine Clarity Urine pH Ur Specific [place] Urine Protein Urine Glucose (UA) Urine Ketones Urine Occult Blood Urine Nitrite Urine Bilirubin Urine Urobilinogen Ur Leukocyte Esterase Ur Microscopic Review Urine Culture Comments Urine HCG, Qual Nasal Adenovirus (PCR) Nasal B. parapertussis DNA (PCR) Nasal Coronavir 229E PCR Nasal Coronavir HKU1 PCR Nasal Coronavir NL63 PCR Nasal Coronavir OC43 PCR Nasal Enterovir/Rhinovir PCR Nasal Influenza B PCR Nasal Influenza A PCR Nasal Parainfluen 1 PCR Nasal Parainfluen 2 PCR Nasal Parainfluen 3 PCR Nasal Parainfluen 4 PCR Nasal RSV (PCR) Nasal B.pertussis DNA PCR Nasal C.pneumoniae (PCR) Faisal Human Metapneumo PCR Nasal M.pneumoniae (PCR) Nasal SARS-CoV-2 (PCR) Last Dose Date Last Dose Time Salicylates < 6.0 Urine Opiates Screen Ur Oxycodone Screen Urine Methadone Screen Ur Propoxyphene Screen Acetaminophen < 10 L Ur Barbiturates Screen Ur Tricyclics Screen Ur Phencyclidine Scrn Ur Amphetamine Screen U Methamphetamines Scrn U Benzodiazepines Scrn [place] Urine Cocaine Screen U Cannabinoids Screen Ethyl Alcohol 5.0 09/02/20 09/02/20 09/02/20 17:03 17:16 17:30 WBC RBC Hgb Hct MCV MCH MCHC RDW Plt Count MPV Neut # (Auto) Lymph # (Auto) [place] # (Auto) Eos # (Auto) Baso # (Auto) Absolute Nucleated RBC Nucleated RBC % Sodium Potassium Chloride Carbon Dioxide Anion Gap BUN Creatinine Estimated GFR (MDRD) Glucose Calcium Total Bilirubin AST ALT Alkaline Phosphatase Total Protein Albumin Globulin Albumin/Globulin Ratio Lipase TSH Urine Color YELLOW Urine Clarity CLEAR Urine pH 5.5 Ur Specific [place] 1.020 Urine Protein NEGATIVE Urine Glucose (UA) NEGATIVE Urine Ketones NEGATIVE Urine Occult Blood NEGATIVE Urine Nitrite NEGATIVE Urine Bilirubin NEGATIVE Urine Urobilinogen 0.2 (NORMAL) Ur Leukocyte Esterase NEGATIVE Ur Microscopic Review NOT INDICATED Urine Culture Comments NOT INDICATED Urine HCG, Qual NEGATIVE Nasal Adenovirus (PCR) NOT DETECTED Nasal B. parapertussis DNA (PCR) NOT DETECTED Nasal Coronavir 229E PCR NOT DETECTED Nasal Coronavir HKU1 PCR NOT DETECTED Nasal Coronavir NL63 PCR NOT DETECTED Nasal Coronavir OC43 PCR NOT DETECTED Nasal Enterovir/Rhinovir PCR NOT DETECTED Nasal Influenza B PCR NOT DETECTED Nasal Influenza A PCR NOT DETECTED Nasal Parainfluen 1 PCR NOT DETECTED Nasal Parainfluen 2 PCR NOT DETECTED Nasal Parainfluen 3 PCR NOT DETECTED Nasal Parainfluen 4 PCR NOT DETECTED Nasal RSV (PCR) NOT DETECTED Nasal B.pertussis DNA PCR NOT DETECTED Nasal C.pneumoniae (PCR) NOT DETECTED Faisal Human Metapneumo PCR NOT DETECTED Nasal M.pneumoniae (PCR) NOT DETECTED Nasal SARS-CoV-2 (PCR) NOT DETECTED Last Dose Date Not Reportable Last Dose Time Not Reportable Salicylates Urine Opiates Screen NEGATIVE Ur Oxycodone Screen NEGATIVE Urine Methadone Screen NEGATIVE Ur Propoxyphene Screen NEGATIVE Acetaminophen Ur Barbiturates Screen NEGATIVE Ur Tricyclics Screen NEGATIVE Ur Phencyclidine Scrn NEGATIVE Ur Amphetamine Screen NEGATIVE U Methamphetamines Scrn NEGATIVE U Benzodiazepines Scrn NEGATIVE [place] 0.45 Urine Cocaine Screen NEGATIVE U Cannabinoids Screen POSITIVE H Ethyl Alcohol PD MEDICAL DECISION MAKING - ED course Complexity details: reviewed results, re-evaluated patient, d/w patient ED course: 25-year-old female presents the emergency department for evaluation of passive thoughts of self-harm. She reports that since transitioning off of Zoloft in favor of lithium as a mood stabilizer she has begun to have increased anxiety and has thoughts of wanting to harm herself in order to feel pain. She denies that she actively wants to . She also does not desire psychiatric hospitalization. She is open to discussing her symptoms with telepsych psy chiatrist who may be rather beneficial in helping discussed medication management options. Once screening labs are obtained and she is medically cleared telepsych will be initiated. 2230: Dr. Ramachandran is speakign with the patient via tablet. Pt endorsed to NOC colleague Dr. Patterson for f/u
[2020-09-02 17:23] LABS: MUDS CUTOFF CONCENTRATIONS CUTOFF CONC BELOW:
[2020-09-02 17:26] LABS: LITHIUM 0.45 mmol/L
[2020-09-02 17:29] LABS: BILIRUBIN,URINE NEGATIVE (NEGATIVE); GLUCOSE, URINE (UA) NEGATIVE (NEGATIVE); KETONES,URINE (UA) NEGATIVE (NEGATIVE); LEUKOCYTE ESTERASE, URINE NEGATIVE (NEGATIVE); NITRITE,URINE NEGATIVE (NEGATIVE); OCCULT BLOOD,URINE NEGATIVE (NEGATIVE); PH,URINE 5.5 PH (5.0-7.5); PROTEIN,URINE NEGATIVE (NEGATIVE); UROBILINOGEN,URINE 0.2 (NORMAL) E.U./dL (NORMAL)
[2020-09-02 17:31] LABS: CLARITY,URINE CLEAR (CLEAR); HCG UR QUAL NEGATIVE
[2020-09-02 17:31] LABS: ACETAMINOPHEN < 10 ug/mL (10-30); ALBUMIN 4.6 g/dL (3.2-5.5); ALBUMIN/GLOBULIN RATIO 1.4 (1.0-2.2); ALKALINE PHOSPHATASE 70 IU/L (42-121); ALT ALANINE AMINOTRANSFERASE 15 IU/L (10-60); AST ASPARTATE AMINOTRANSFERASE 16 IU/L (10-42); BILIRUBIN,TOTAL 0.6 mg/dL (0.2-1.0); BUN - BLOOD UREA NITROGEN 14 mg/dL (6-20); CALCIUM 9.8 mg/dL (8.5-10.3); CARBON DIOXIDE - CO2 25 mmol/L (21-32); CHLORIDE 103 mmol/L (101-111); CREATININE 0.8 mg/dL (0.4-1.0); GFR - MDRD 87 (>89); GLUCOSE 91 mg/dL (70-100); LIPASE 31 U/L (22-51); POTASSIUM 4.2 mmol/L (3.5-5.0); SALICYLATE < 6.0 mg/dL; SODIUM 138 mmol/L (135-145)
[2020-09-02 17:35] LABS: AMPHETAMINE SCREEN,URINE NEGATIVE (NEGATIVE); BARBITURATE SCREEN,UR NEGATIVE (NEGATIVE); BENZODIAZEPINES SCREEN, URINE NEGATIVE (NEGATIVE); COCAINE SCREEN URINE NEGATIVE (NEGATIVE); METHADONE SCREEN, URINE NEGATIVE (NEGATIVE); METHAMPHETAMINES SCREEN, URINE NEGATIVE (NEGATIVE); OPIATE SCREEN, URINE NEGATIVE (NEGATIVE); OXYCODONE SCREEN, URINE NEGATIVE (NEGATIVE); PROPOXYPHENE SCREEN, URINE NEGATIVE (NEGATIVE); THC CANNABINOID SCREEN, URINE POSITIVE (NEGATIVE); TRICYCLIC ANTIDEPRESSANT,URINE NEGATIVE (NEGATIVE)
[2020-09-02] MEDS ORDERED: ACETAMINOPHEN 325 MG TABLET PO STA (18:22)
[2020-09-02 18:30] LABS: B. PARAPERTUSSIS- RESP PCR PAN NOT DETECTED; B. PERTUSSIS- RESP PCR PANEL NOT DETECTED; C. PNEUMONIAE- RESP PCR PANEL NOT DETECTED; CORONAVIRUS 229E-RESP PCR NOT DETECTED; CORONAVIRUS HKU1-RESP PCR NOT DETECTED; CORONAVIRUS NL63-RESP PCR NOT DETECTED; CORONAVIRUS OC43-RESP PCR NOT DETECTED; HUMAN METAPNEUMOVIRUS NOT DETECTED; INFLUENZA A- RESP PCR PANEL NOT DETECTED; INFLUENZA B - RESP PCR PANEL NOT DETECTED; M. PNEUMONIAE- RESP PCR PANEL NOT DETECTED; PARAINFLUENZA VIRUS 1 NOT DETECTED; PARAINFLUENZA VIRUS 2 NOT DETECTED; PARAINFLUENZA VIRUS 3 NOT DETECTED; PARAINFLUENZA VIRUS 4 NOT DETECTED; RHINOVIRUS/ENTEROVIRUS NOT DETECTED; RSV- RESP PCR PANEL NOT DETECTED; SARS-CoV-2 -RESP PCR PANEL NOT DETECTED
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
[2020-09-02 23:59] VITALS: BP 118/80
== END 2020-09-02 23:56 | disposition home or self-care (01) ==
LOC: ED 16:07
DX: F31.30 Bipolar disorder, current episode depressed, mild or moderate severity, unspecified (principal); F41.9 Anxiety disorder, unspecified; R45.851 Suicidal ideations; Z20.822 Contact with and (suspected) exposure to COVID-19
CPT/HCPCS: 0202U; 36415; 80053; 80178; 80306; 80307; 80320; 80329; 81003; 81025; 83690; 84443; 85025; 93005; 99283; A9270; G0425; Q3014; 81001; 87086